=== PATIENT | female | born 1955 | race Two or more races ===

== ENCOUNTER → 2018-12-09 | Outpatient (RCR) | payer MEDICARE, OTHER ==
[~2018-12-09] MED LIST: LYRICA75 MG PO
== END ==
LOC: PT 10:54
PROVIDERS: ATTEND Orthopaedic Surgery
DX: M17.12 Unilateral primary osteoarthritis, left knee (principal); M25.562 Pain in left knee; M25.462 Effusion, left knee; M25.662 Stiffness of left knee, not elsewhere classified; M62.81 Muscle weakness (generalized)

== ENCOUNTER → 2019-01-02 | Day surgery (SDC) | payer MEDICARE, OTHER ==
[2018-12-29 14:45] LABS: BASOPHILS % 0.2 % (0.0-1.0); HEMATOCRIT 39.8 % (34.2-44.1); HEMOGLOBIN 12.2 g/dL (12.0-16.0); LYMPHOCYTES # (AUTO) 1.6 (1.0-3.2); LYMPHOCYTES % 38.4 % (18.0-39.1); MEAN CORPUSCULAR HEMOGLOBIN 25.2 pg (28-32); MEAN CORPUSCULAR HGB CONC 30.7 g/dL (31-35); MEAN CORPUSCULAR VOLUME 82.1 fL (81-99); MONOCYTES # (AUTO) 0.4 (0.2-0.8); MONOCYTES % 8.5 % (4.4-11.3); NEUTROPHILS # (AUTO) 2.2 (2.1-6.9); NEUTROPHILS % 52.7 % (38.7-80.0); PLATELET COUNT 221 x10e3/uL (140-360); RED BLOOD COUNT 4.85 x10e6/uL (3.6-5.1); RED CELL DISTRIBUTION WIDTH 14.3 % (11.7-14.4)
[~2019-01-02] MED LIST changes: +FENTANYL CITRATE/PF 100MCG/2 ML INJ ONE; +GLUCAGON FOR INJ 1 MG VIAL ONE; +HYOSCYAMINE 0.125 MG TAB ONE; +LIDOCAINE HCL 2% LOCAL INJ 5 ML SDV VIAL INJ ONE; +MIDAZOLAM HCL 2 MG/2 ML VIAL ONE; +PROPOFOL IV EMULSION 10 MG/ML 50 ML VIAL ONE
--- OUTSIDE RECORDS SUMMARY | 2019-01-02 11:51 | XMS REPORT ---
[facility] Address Unknown Phone Unavailable Care Team Providers Care Brick Setter Name Role Phone Unavailable Unavailable Payers Payer Name Policy Type Policy Number Effective Date Expiration Date Problems This patient has no known problems. Allergies, Adverse Reactions, Alerts Allergy Name Allergy Type Status Severity Reaction(s) Onset Date Inactive Date Treating Clinician Comments No Known Allergies DA Active U 2015-01-02 00:00:00 Medications This patient has no known medications. Encounters Start Date/Time End Date/Time Encounter Type Admission Type Attending Clinicians Care Facility Care Department Encounter ID 2018-11-17 10:39:00 2018-11-17 10:39:00 Outpatient [facility] [id number] Results Test Description Test Time Test Comments Text Results Atomic Results Result Comments - MRI LW JNT W/O CONT LT 2018-10-26 08:18:00 FAX: Sal Sidhu [phone] [place]: B St: DEP Name: LIZET MILLER [facility] : 1955 Age/S: 63/F [address] [facility] Unit #: [id number] Loc: V.MRI DORINDA [place] [address] Phys: Undefined Provider Acct: [id number] Dis Date: Status: DEP CLI PHONE #: [phone] Exam Date: 10/25/2018 1449 FAX #: [phone] Reason: S83.231 EXAMS: CPT CODE: [id number] MRI LW JNT W/[place] [address] HISTORY: S8. COMPARISON: None available. MRI left kidney without contrast: The quadriceps tendon is intact. Grade 2 strain at the origin of the patellar tendon. Infrapatellar Hoffa's fat, prefemoral fat and quadriceps fat are without impingement. Mild edema of the infrapatellar Hoffa's fat. No bone bruise or acute fracture or osteochondral lesions. Marginal enthesophytes from the patella and the femoral condyles suggesting osteoarthritis. Mild narrowing of the knee joint in all 3 compartments. Posterior bowing of the ACL suggesting injury without tear. PCL is intact as well. Lateral meniscus is without tear or truncation. Medial meniscus demonstrating extensive mucoid degeneration but no tear is noted. No truncation. Meniscal roots are intact. No meniscocapsular separation. LCL and MCL complex are intact. Musculature is without tear or edema with normal signal. Popliteus tendon is intact without tear. Large suprapatellar joint fluid. Popliteal cyst measuring 6 mm along the medial head of the gastrocnemius muscle. The medial and the lateral retinaculum are intact. MPFL demonstrating partial tear at the patellar insertion. Thinning of the articular cartilage of the patella without tear. IMPRESSION: Grade 2 strain of the origin of the patellar tendon. Quadriceps tendon is intact. Partial tear of the MPFL at its patellar insertion. Moderate suprapatellar joint fluid. Popliteal cyst measuring 6 cm. Posterior bowing of the ACL suggesting injury but no tear. PCL is intact. Lateral meniscus is intact. Medial meniscus is intact with mucoid degeneration without truncation or tear. Osteoarthritis with marginal osteophytes and narrowing of the knee joint in all 3 compartments. PAGE 1 Signed Report (CONTINUED) FAX: Sal Sidhu [phone] [place]: St: DEP Name: LIZET MILLER [facility] : 1955 Age/S: 63/F [address] Unit #: [id number] Loc: [place] [address] Phys: Undefined Provider Acct: [id number] Dis Date: Status: DEP CLI PHONE #: [phone] Exam Date: 10/25/2018 1449 FAX #: [phone] Reason: S83.231 EXAMS: CPT CODE: [id number] MRI LW JNT W/[place] [address] <Continued> at 0818 Reported and signed by: Noel Goncalves M.D. CC: Sal Arzola Technologist: RT ABDIAZIZ - MRI [facility] Date/Time/By: 10/26/2018 (817) : By: [email or web address] Orig Print D/T: S: 10/26/2018 (820) PAGE 2 Signed Report - MRI UPPER EX W/O CONT RT 2018-10-15 19:41:00 FAX: Sal Sidhu [phone] [place]: B St: DEP Name: LIZET MILLER [facility] : 1955 Age/S: 62/F [address] Unit #: [id number] Loc: [place] [address] Phys: Sal Arzola DO Acct: [id number] Dis Date: Status: DEP CLI PHONE #: [phone] Exam Date: 10/14/2018 1653 FAX #: [phone] Reason: FINGER PAIN EXAMS: CPT CODE: [id number] [place] UPPER EX W/[place] [address] HISTORY: Finger pain. COMPARISON: None available. MRI of the 2nd right digit/phalanx without contrast: No acute fracture is noted. No bone bruise is noted. Joint spaces are preserved. Tear noted of the annular A4 karthik at the mid portion of the middle phalangeal level. Moderate amount of fluid and edema phalanx from the flexor tendon. Tear of both the radial and the ulnar side of the karthik is noted. Annular A 2 karthik is intact. Rest of the pulleys are intact along with the cruciate pulleys. The flexor tendon is intact. Small ganglion cyst along the dorsal margin of the distal 1st phalanx. This measures 5 mm. IMPRESSION: Tear of the A4 karthik of the 2nd middle phalanx both along its radial and ulnar margin with fluid interposed between the flexor tendon and the middle phalanx. No acute fracture or bone bruise. at 194 Reported and signed by: Noel Goncalves M.D. CC: Sal Arzola Technologist: Parvez Taylor)() Trnscrd Date/Time/By: 10/15/2018 (1940) : By: [email or web address] Orig Print D/T: S: 10/15/2018 (1943) PAGE 1 Signed Report
[2019-01-02 15:35] VITALS: BP 139/82
--- NOTE | 2019-01-02 18:08 | Operative Report ---
DATE OF PROCEDURE: 01/02/2019 SURGEON: Zoltan Sheikh MD PROCEDURE: Esophagogastroduodenoscopy with biopsies and esophageal dilatation and colonoscopy with polypectomy. INDICATION FOR EGD: Dysphagia, burning upper abdominal pain. INDICATIONS FOR COLONOSCOPY: Surveillance colonoscopy, personal history of colon polyps. MEDICATION: The patient was done under MAC, please see anesthesiologist's note PROCEDURE IN DETAIL: With the patient in left lateral decubitus position, a flexible fiberoptic Olympus gastroscope was introduced into the esophagus under direct visualization without any difficulty. There was some patchy erythema noted in distal esophagus. A mild stricture was noted at the GE junction that was dilated to size 52-[place]. The scope was then advanced with ease into the stomach traversing a small sliding hiatal hernia. Mucosa overlying the antrum and the body revealed some patchy erythema and low-grade to moderate edema and biopsies were obtained and sent to stain for H pylori. The pylorus was of normal contour and shape, it was intubated with ease and the scope was advanced all the way to the second portion of the duodenum. Biopsies were obtained from the second portion and the duodenal bulb to rule out sprue. The scope was then withdrawn back into the stomach and retroflexed and the fundus appeared to be within normal limits. A minute submucosal nodule was noted just below the cardia and that was biopsied. The scope was then straightened out, it was subsequently withdrawn. The patient tolerated procedure well. IMPRESSION: 1. Distal esophagitis, mild. 2. Esophagus dilated to size 52-[place]. 3. Small hiatal hernia. 4. Gastritis, biopsied, biopsies sent to stain for H pylori. 5. Minute submucosal nodule just below cardia, biopsied. 6. Rule out sprue. PLAN: Follow up histology. Initiate Protonix 40 mg one p.o. q.a.m. a.c. PROCEDURE IN DETAIL: The patient was then turned around. After adequate lubrication of the anal canal, a flexible fiberoptic Olympus colonoscope was inserted into the rectum with ease and advanced all the way to the cecum. Mucosa overlying the cecum appeared to be within normal limits. A single diverticulum was noted in the ascending colon. Two polyps were hot biopsied from the ascending colon. The transverse appeared to be within normal limits. One polyp was hot biopsied from the descending colon. Some diverticular disease was noted in the sigmoid colon. The rectum appeared to be within normal limits. The scope was then retroflexed into the distal rectum and small internal hemorrhoids were noted, none of which was actively bleeding. The scope was then straightened out, it was subsequently withdrawn. The patient tolerated procedure well. IMPRESSION: 1. Ascending colon polyp x2, hot biopsied. 2. Diverticulosis. 3. Descending colon polyp, hot biopsied. 4. Internal hemorrhoids, none actively bleeding. PLAN: Follow up histology. Initiate high-fiber, low-fat diet. Initiate high-fiber supplement. The patient might benefit from a followup colonoscopy in 5 years. Zoltan Sheikh MD [facility] [place] /[id number] cc: Sal Arzola DO
== END | disposition home or self-care (01) ==
LOC: OR 11:45
PROVIDERS: ATTEND Internal Medicine Gastroenterology
DX: K29.60 Other gastritis without bleeding (principal); D12.2 Benign neoplasm of ascending colon; D12.4 Benign neoplasm of descending colon; K22.2 Esophageal obstruction; K29.80 Duodenitis without bleeding; K21.9 Gastro-esophageal reflux disease without esophagitis; K28.9 Gastrojejunal ulcer, unspecified as acute or chronic, without hemorrhage or perforation; K20.9 Esophagitis, unspecified; K44.9 Diaphragmatic hernia without obstruction or gangrene; K31.89 Other diseases of stomach and duodenum; K57.30 Diverticulosis of large intestine without perforation or abscess without bleeding; K64.8 Other hemorrhoids; R03.0 Elevated blood-pressure reading, without diagnosis of hypertension; Z01.810 Encounter for preprocedural cardiovascular examination; Z01.812 Encounter for preprocedural laboratory examination
CPT/HCPCS: 36415; 43239; 43450; 45384; 85025; 88305; 88312; 93005; J1610; J2001; J2250; J2704; 45378; J3010

== ENCOUNTER 2019-01-06 13:00 | Outpatient (RCR) | payer MEDICARE, OTHER ==
[~2019-01-06 13:00] MED LIST changes: -FENTANYL CITRATE/PF 100MCG/2 ML INJ ONE; -GLUCAGON FOR INJ 1 MG VIAL ONE; -HYOSCYAMINE 0.125 MG TAB ONE; -LIDOCAINE HCL 2% LOCAL INJ 5 ML SDV VIAL INJ ONE; -MIDAZOLAM HCL 2 MG/2 ML VIAL ONE; -PROPOFOL IV EMULSION 10 MG/ML 50 ML VIAL ONE
== END 2019-01-08 ==
LOC: PT 13:00
PROVIDERS: ATTEND Orthopaedic Surgery
DX: M17.12 Unilateral primary osteoarthritis, left knee (principal); M25.562 Pain in left knee; M62.81 Muscle weakness (generalized); M25.662 Stiffness of left knee, not elsewhere classified; M25.462 Effusion, left knee

== ENCOUNTER 2019-01-23 10:00 | Outpatient (RCR) | payer MEDICARE, OTHER | END 2019-02-08 | LOC: OT 10:00 | PROVIDERS: ATTEND Orthopaedic Surgery | DX: M19.041 Primary osteoarthritis, right hand (principal); M79.644 Pain in right finger(s); M25.541 Pain in joints of right hand; M25.441 Effusion, right hand ==

== ENCOUNTER → 2020-02-09 | Outpatient (RCR) | payer MEDICARE, OTHER | LOC: PT 01-29 15:37 | PROVIDERS: ATTEND Orthopaedic Surgery | DX: M17.12 Unilateral primary osteoarthritis, left knee (principal); Z96.652 Presence of left artificial knee joint; Z47.1 Aftercare following joint replacement surgery; M62.81 Muscle weakness (generalized); R26.2 Difficulty in walking, not elsewhere classified; R26.9 Unspecified abnormalities of gait and mobility ==

== ENCOUNTER → 2020-03-11 | Outpatient (RCR) | payer MEDICARE, OTHER | LOC: PT 02-12 14:59 → OT 02-20 13:52 → PT 02-20 14:20 → OT 02-28 14:54 → PT 03-01 15:00 → OT 03-08 13:52 → PT 14:56 | PROVIDERS: ATTEND Orthopaedic Surgery | DX: M17.12 Unilateral primary osteoarthritis, left knee (principal); Z96.652 Presence of left artificial knee joint; M65.321 Trigger finger, right index finger | CPT/HCPCS: 97139 ==

== ENCOUNTER 2020-04-09 14:59 | Outpatient (RCR) | payer MEDICARE, OTHER | END 2020-04-10 | LOC: PT 14:59 | PROVIDERS: ATTEND Orthopaedic Surgery | DX: Z96.652 Presence of left artificial knee joint (principal); Z47.1 Aftercare following joint replacement surgery; M17.12 Unilateral primary osteoarthritis, left knee; R26.9 Unspecified abnormalities of gait and mobility; M62.81 Muscle weakness (generalized); R26.2 Difficulty in walking, not elsewhere classified | CPT/HCPCS: 97139 ==

== ENCOUNTER → 2020-06-10 | Outpatient (RCR) | payer MEDICARE, OTHER | LOC: PT 05-31 10:45 | PROVIDERS: ATTEND Orthopaedic Surgery | DX: M17.12 Unilateral primary osteoarthritis, left knee (principal); M54.5 Low back pain; M62.81 Muscle weakness (generalized); M25.562 Pain in left knee; M25.662 Stiffness of left knee, not elsewhere classified; R26.2 Difficulty in walking, not elsewhere classified ==

== ENCOUNTER 2020-06-24 14:55 | Outpatient (RCR) | payer MEDICARE, OTHER | END 2020-07-11 | LOC: PT 14:55 | PROVIDERS: ATTEND Orthopaedic Surgery | DX: Z96.652 Presence of left artificial knee joint (principal); M17.12 Unilateral primary osteoarthritis, left knee; M25.562 Pain in left knee; M25.662 Stiffness of left knee, not elsewhere classified; M54.5 Low back pain; M62.81 Muscle weakness (generalized); R26.2 Difficulty in walking, not elsewhere classified | CPT/HCPCS: 97139 ==

== ENCOUNTER → 2020-06-27 | Outpatient (CLI) | payer MEDICARE, OTHER ==
[~2020-06-27] MED LIST changes: +GADOBENATE DIMEGLUMINE 1 ML IV ONE
[2020-06-27 14:48] LABS: BLOOD UREA NITROGEN 13 mg/dL (7-26); BUN/CREATININE RATIO 18 (6-25); CREATININE, SERUM 0.72 mg/dL (0.57-1.11); EST GLOMERULAR FILTRATION RATE > 60 ML/MIN (60-)
== END ==
LOC: MRI 13:59
PROVIDERS: ATTEND Family Medicine
DX: Z12.31 Encounter for screening mammogram for malignant neoplasm of breast (principal); N63.32 Unspecified lump in axillary tail of the left breast; R91.1 Solitary pulmonary nodule; R10.9 Unspecified abdominal pain
CPT/HCPCS: 36415; 77067; 82565; 84520

== ENCOUNTER → 2020-07-02 | Outpatient (CLI) | payer MEDICARE, OTHER ==
[~2020-07-02] MED LIST changes: -GADOBENATE DIMEGLUMINE 1 ML IV ONE; +IOPAMIDOL 370 MG/ML 200 ML INFUS..BTL INJ ONE; +SODIUM CHLORIDE 0.9% 50ML 50 ML ONE
== END ==
LOC: CT 09:56
PROVIDERS: ATTEND Family Medicine
DX: N63.32 Unspecified lump in axillary tail of the left breast (principal); R10.9 Unspecified abdominal pain; R91.1 Solitary pulmonary nodule
CPT/HCPCS: 71260; 74177; Q9967

== ENCOUNTER → 2020-07-22 | Outpatient (CLI) | payer MEDICARE, OTHER ==
[~2020-07-22] MED LIST changes: -IOPAMIDOL 370 MG/ML 200 ML INFUS..BTL INJ ONE; -SODIUM CHLORIDE 0.9% 50ML 50 ML ONE
== END ==
LOC: DX 09:21
PROVIDERS: ATTEND Family Medicine
DX: M81.0 Age-related osteoporosis without current pathological fracture (principal)
CPT/HCPCS: 77080

== ENCOUNTER 2020-08-09 12:57 | Outpatient (RCR) | payer MEDICARE, OTHER | END 2020-08-11 | LOC: PT 12:57 | PROVIDERS: ATTEND Orthopaedic Surgery | DX: M17.12 Unilateral primary osteoarthritis, left knee (principal) | CPT/HCPCS: 97139 ==

== ENCOUNTER 2020-09-02 14:55 | Outpatient (RCR) | payer MEDICARE, OTHER | END 2020-09-08 | LOC: PT 14:55 | PROVIDERS: ATTEND Orthopaedic Surgery | DX: M17.12 Unilateral primary osteoarthritis, left knee (principal); M54.5 Low back pain ==

== ENCOUNTER → 2020-11-25 | Outpatient (CLI) | payer MEDICARE, OTHER ==
[~2020-11-25] MED LIST changes: +IOPAMIDOL 370 MG/ML 200 ML INFUS..BTL INJ ONE; +SODIUM CHLORIDE 0.9% 50ML 50 ML ONE
[2020-11-25 18:02] LABS: BLOOD UREA NITROGEN 24 mg/dL (7-26); BUN/CREATININE RATIO 31 (6-25); CREATININE, SERUM 0.78 mg/dL (0.57-1.11); EST GLOMERULAR FILTRATION RATE > 60 ML/MIN (60-)
== END ==
LOC: CT 17:22
PROVIDERS: ATTEND Internal Medicine Gastroenterology
DX: R10.10 Upper abdominal pain, unspecified (principal)
CPT/HCPCS: 36415; 74160; 82565; 84520; Q9967

== ENCOUNTER 2020-12-05 09:59 | Outpatient (RCR) | payer MEDICARE, OTHER ==
[~2020-12-05 09:59] MED LIST changes: +ALENDRONATE SOD10 MG PO; +CELEXA10 MG PO; +GABAPENTIN100 MG PO; -IOPAMIDOL 370 MG/ML 200 ML INFUS..BTL INJ ONE; +PANTOPRAZOLE SO40 MG PO; -SODIUM CHLORIDE 0.9% 50ML 50 ML ONE
== END 2020-12-09 ==
LOC: PT 09:59
PROVIDERS: ATTEND Orthopaedic Surgery

== ENCOUNTER → 2020-12-12 | Day surgery (SDC) | payer MEDICARE, OTHER ==
[2020-12-10 10:44] LABS: BASOPHILS % 0.3 % (0.0-1.0); HEMATOCRIT 37.7 % (34.2-44.1); HEMOGLOBIN 11.3 g/dL (12.0-16.0); LYMPHOCYTES # (AUTO) 1.8 (1.0-3.2); LYMPHOCYTES % 45.3 % (18.0-39.1); MEAN CORPUSCULAR HEMOGLOBIN 24.4 pg (28-32); MEAN CORPUSCULAR VOLUME 81.4 fL (81-99); MONOCYTES # (AUTO) 0.3 (0.2-0.8); MONOCYTES % 7.3 % (4.4-11.3); NEUTROPHILS # (AUTO) 1.8 (2.1-6.9); NEUTROPHILS % 46.8 % (38.7-80.0); PLATELET COUNT 214 x10e3/uL (140-360); RED BLOOD COUNT 4.63 x10e6/uL (3.6-5.1); RED CELL DISTRIBUTION WIDTH 14.1 % (11.7-14.4)
[~2020-12-12] MED LIST changes: +GLUCAGON FOR INJ 1 MG VIAL ONE; +HYOSCYAMINE SULFATE 0.5 MG/ML INJ ONE; +LIDOCAINE HCL 2% LOCAL INJ 5 ML SDV VIAL INJ ONE; +METOCLOPRAMIDE HCL 10 MG/2ML VIAL ONE; +PANTOPRAZOLE 40 MG 10ML VIAL IV NR; +POVIDONE IODINE 0.05% 0.05 % ML PO ONE; +PROPOFOL IV EMULSION 10 MG/ML 20 ML VIAL ONE
[2020-12-12 12:40] VITALS: BP 137/89
== END | disposition home or self-care (01) ==
LOC: OR 07:53
PROVIDERS: ATTEND Internal Medicine Gastroenterology
DX: K21.00 Gastro-esophageal reflux disease with esophagitis, without bleeding (principal); K62.1 Rectal polyp; K31.7 Polyp of stomach and duodenum; K29.70 Gastritis, unspecified, without bleeding; K44.9 Diaphragmatic hernia without obstruction or gangrene; K64.8 Other hemorrhoids; E78.00 Pure hypercholesterolemia, unspecified; R03.0 Elevated blood-pressure reading, without diagnosis of hypertension; Z01.810 Encounter for preprocedural cardiovascular examination; Z01.812 Encounter for preprocedural laboratory examination; Z20.822 Contact with and (suspected) exposure to COVID-19; Z80.0 Family history of malignant neoplasm of digestive organs
CPT/HCPCS: 36415; 43239; 45384; 85025; 88305; 88312; 93005; C9113; J1610; J1980; J2001; J2704; J2765; U0002; 45378

== ENCOUNTER 2021-01-03 12:55 | Outpatient (RCR) | payer MEDICARE, OTHER ==
[~2021-01-03 12:55] MED LIST changes: -GLUCAGON FOR INJ 1 MG VIAL ONE; -HYOSCYAMINE SULFATE 0.5 MG/ML INJ ONE; -LIDOCAINE HCL 2% LOCAL INJ 5 ML SDV VIAL INJ ONE; -METOCLOPRAMIDE HCL 10 MG/2ML VIAL ONE; -PANTOPRAZOLE 40 MG 10ML VIAL IV NR; -POVIDONE IODINE 0.05% 0.05 % ML PO ONE; -PROPOFOL IV EMULSION 10 MG/ML 20 ML VIAL ONE
== END 2021-01-08 ==
LOC: PT 12:55
PROVIDERS: ATTEND Orthopaedic Surgery
DX: M17.12 Unilateral primary osteoarthritis, left knee (principal); M54.5 Low back pain
CPT/HCPCS: 97139

== ENCOUNTER → 2021-01-24 | Outpatient (CLI) | payer MEDICARE, OTHER | LOC: DX 09:38 | PROVIDERS: ATTEND Internal Medicine Gastroenterology | DX: R10.10 Upper abdominal pain, unspecified (principal) | CPT/HCPCS: 74250 ==

== ENCOUNTER 2021-08-24 11:24 | Observation (INO) | payer MEDICARE, OTHER ==
[~2021-08-24] VITALS: Ht 165.1 cm; Wt 79.4 kg
[2021-08-24] MEDS ORDERED: ONDANSETRON HCL INJ 2MG/ML 2ML 2 MG/ML VIAL IV STA (11:52)
[2021-08-24 11:54] LABS: RED BLOOD COUNT 5.37 x10e6/uL (3.6-5.1)
[2021-08-24 11:55] LABS: BASOPHILS % 0.4 % (0.0-1.0); HEMATOCRIT 42.3 % (34.2-44.1); HEMOGLOBIN 13.1 g/dL (12.0-16.0); LYMPHOCYTES # (AUTO) 3.2 (1.0-3.2); LYMPHOCYTES % 56.8 % (18.0-39.1); MEAN CORPUSCULAR HEMOGLOBIN 24.4 pg (28-32); MEAN CORPUSCULAR VOLUME 78.8 fL (81-99); MONOCYTES # (AUTO) 0.4 (0.2-0.8); MONOCYTES % 6.8 % (4.4-11.3); NEUTROPHILS % 35.8 % (38.7-80.0); PLATELET COUNT 270 x10e3/uL (140-360); RED CELL DISTRIBUTION WIDTH 14.8 % (11.7-14.4)
[2021-08-24 12:08] LABS: INR 0.91; PROTHROMBIN TIME 12.9 seconds (11.9-14.5)
[2021-08-24 12:09] LABS: PARTIAL THROMBOPLASTIN TIME 28.5 seconds (23.8-35.5)
[2021-08-24] MEDS ORDERED: Morphine 2mg Syringe 2 MG/ML SYR IV PRN (12:15)
[2021-08-24] MEDS ORDERED: ONDANSETRON HCL INJ 2MG/ML 2ML 2 MG/ML VIAL IV PRN ×2 (12:15→13:45)
[2021-08-24 12:16] LABS: ALBUMIN 4.2 g/dL (3.5-5.0); ALBUMIN/GLOBULIN RATIO 1.1 (0.8-2.0); ANION GAP 19.6 mmol/L (8-16); CALCIUM 10.1 mg/dL (8.4-10.2); CREATININE, SERUM 0.82 mg/dL (0.57-1.11); POTASSIUM 3.6 mmol/L (3.5-5.1)
[2021-08-24 12:23] LABS: CREATINE KINASE MB 1.1 ng/mL (0-5.0)
[2021-08-24] MEDS ORDERED: Morphine 2mg Syringe 2 MG/ML SYR IV ONE (12:30)
[2021-08-24] MEDS ORDERED: ASPIRIN 81 MG CHEW TAB PO ONE (12:30)
[2021-08-24 12:53] VITALS: BP 141/75
[2021-08-24 13:36] VITALS: BP 141/75
[2021-08-24] MEDS ORDERED: SIMETHICONE 80 MG CHEW PO PRN (13:45)
[2021-08-24] MEDS ORDERED: CHLORASEPTIC SPRAY 177 ML BTL MM PRN (13:45)
[2021-08-24] MEDS ORDERED: ALBUTEROL/IPRATROPIUM 3 ML NEB NEB PRN (13:45)
[2021-08-24] MEDS ORDERED: HYDRALAZINE HCL 20 MG/ML VIAL IV PRN (13:45)
[2021-08-24] MEDS ORDERED: DOCUSATE SODIUM 100 MG CAP PO PRN (13:45)
[2021-08-24] MEDS ORDERED: DEXTROSE 50% SYRINGE 50 ML IV PRN (13:45)
[2021-08-24] MEDS ORDERED: DIPHENHYDRAMINE HCL 25 MG CAP PO PRN (13:45)
[2021-08-24] MEDS ORDERED: POTASSIUM CHLORIDE 20 MEQ TAB CR PO PRN (13:45)
[2021-08-24] MEDS ORDERED: ACETAMINOPHEN 325 MG TAB PO PRN (13:45)
[2021-08-24] MEDS ORDERED: LIDOCAINE 4% PATCH TP PRN (13:45)
[2021-08-24] MEDS ORDERED: BENZONATATE 100 MG CAP PO PRN (13:45)
[2021-08-24] MEDS ORDERED: CRESTOR10 MG PO (13:59)
[2021-08-24] MEDS ORDERED: FAMOTIDINE20 MG PO (13:59)
[2021-08-24] MEDS ORDERED: KETOROLAC TROMETHAMINE 30 MG/ML VIAL IV PRN (14:00)
[2021-08-24] MEDS ORDERED: TRAMADOL HCL 50 MG TAB PO PRN (14:00)
[2021-08-24] MEDS: SODIUM CHLORIDE 0.9% 1000ML 1,000 ML IV SCH (14:19)
[2021-08-24] MEDS ORDERED: IOPAMIDOL 370 MG/ML 200 ML INFUS..BTL INJ ONE (14:28)
[2021-08-24] MEDS ORDERED: SODIUM CHLORIDE 0.9% 50ML 50 ML ONE (14:28)
[2021-08-24 16:32] VITALS: BP 103/47
[2021-08-24] MEDS: GABAPENTIN 300 MG CAP PO SCH (17:09)
[2021-08-24] MEDS: ENOXAPARIN SOD INJ 40 MG/0.4 ML SYR SC SCH (17:09)
[2021-08-24 20:13] VITALS: BP 123/65
[2021-08-24 20:57] VITALS: BP 93/55
[2021-08-24] MEDS ORDERED: ATORVASTATIN 20 MG TAB PO SCH (21:00)
[2021-08-24 21:04] VITALS: BP 123/65
[2021-08-25] VITALS (7 sets, daily range): BP systolic 93–128; BP diastolic 57–76
[2021-08-25] MEDS: SODIUM CHLORIDE 0.9% 1000ML 1,000 ML IV SCH ×2 (00:39→11:30)
[2021-08-25 05:18] LABS: BASOPHILS % 0.3 % (0.0-1.0); HEMATOCRIT 39.8 % (34.2-44.1); HEMOGLOBIN 11.6 g/dL (12.0-16.0); LYMPHOCYTES # (AUTO) 1.3 (1.0-3.2); LYMPHOCYTES % 42.2 % (18.0-39.1); MEAN CORPUSCULAR HEMOGLOBIN 24.6 pg (28-32); MEAN CORPUSCULAR HGB CONC 29.1 g/dL (31-35); MEAN CORPUSCULAR VOLUME 84.3 fL (81-99); MONOCYTES # (AUTO) 0.3 (0.2-0.8); MONOCYTES % 8.8 % (4.4-11.3); NEUTROPHILS # (AUTO) 1.5 (2.1-6.9); NEUTROPHILS % 48.4 % (38.7-80.0); PLATELET COUNT 214 x10e3/uL (140-360); RED BLOOD COUNT 4.72 x10e6/uL (3.6-5.1)
[2021-08-25 06:03] LABS: ALBUMIN 3.2 g/dL (3.5-5.0); ALBUMIN/GLOBULIN RATIO 1.1 (0.8-2.0); ANION GAP 10.8 mmol/L (8-16); CALCIUM 8.8 mg/dL (8.4-10.2); CHOL/HDL RATIO 4.6 (3.0-3.6); CREATININE, SERUM 0.78 mg/dL (0.57-1.11); PHOSPHORUS 3.1 MG/DL (2.3-4.7); POTASSIUM 3.8 mmol/L (3.5-5.1)
[2021-08-25 06:34] LABS: CREATINE KINASE MB 0.8 ng/mL (0-5.0)
[2021-08-25] MEDS ORDERED: PANTOPRAZOLE SOD 40 MG TABEC PO SCH (07:30)
[2021-08-25] MEDS: GABAPENTIN 300 MG CAP PO SCH ×2 (08:52→16:26)
[2021-08-25] MEDS ORDERED: REGADENOSON 0.4 MG/5 ML SYR IV ONE (10:07)
[2021-08-25] MEDS ORDERED: AMINOPHYLLINE INJ 25 MG/ML 20 ML VIAL ONE (10:24)
[2021-08-25] MEDS: CITALOPRAM HYDROBROMIDE 20 MG TAB PO SCH ×2 (11:30→14:55)
[2021-08-25] MEDS: ASPIRIN 81 MG ENTERIC COATED PO SCH ×2 (11:30→14:55)
[2021-08-25] MEDS ORDERED: SODIUM CHLORIDE 0.9% 1000ML 1,000 ML IV SCH (11:45)
[2021-08-25] MEDS ORDERED: HYDROXYZINE HCL 25 MG TAB PO PRN (12:15)
[2021-08-25] MEDS ORDERED: FENTANYL CITRATE/PF 100MCG/2 ML INJ ONE (13:13)
[2021-08-25] MEDS ORDERED: LIDOCAINE HCL 2% LOCAL 20 ML VIAL ONE (13:13)
[2021-08-25] MEDS ORDERED: MIDAZOLAM HCL 2 MG/2 ML VIAL ONE (13:13)
[2021-08-25] MEDS ORDERED: IOPAMIDOL 370 MG/ML 200 ML INFUS..BTL INJ ONE (13:14)
[2021-08-25] MEDS ORDERED: HEPARIN SOD/SOD CHLORIDE 2,000 ML ONE (13:14)
[2021-08-25] MEDS ORDERED: SODIUM CHLORIDE 0.9% 1000ML 1,000 ML ONE (13:14)
[2021-08-25 13:27] LABS: CREATINE KINASE MB 0.7 ng/mL (0-5.0)
[2021-08-25] MEDS ORDERED: AMLODIPINE BESYL5 MG PO (14:21)
[2021-08-25] MEDS: ENOXAPARIN SOD INJ 40 MG/0.4 ML SYR SC SCH (16:26)
[2021-08-25] MEDS ORDERED: atarax PO (18:27)
== END 2021-08-25 18:46 | disposition home or self-care (01) ==
LOC: ER 11:42 → ERHOLD 12:09 → MED/SURG 12:52
PROVIDERS: ADMIT Internal Medicine; ATTEND Internal Medicine
DX: I20.1 Angina pectoris with documented spasm (principal); I10 Essential (primary) hypertension; E78.5 Hyperlipidemia, unspecified; G25.81 Restless legs syndrome; K21.9 Gastro-esophageal reflux disease without esophagitis; F32.A Depression, unspecified; F41.9 Anxiety disorder, unspecified; Z20.822 Contact with and (suspected) exposure to COVID-19; Z90.49 Acquired absence of other specified parts of digestive tract; M19.90 Unspecified osteoarthritis, unspecified site; Z80.8 Family history of malignant neoplasm of other organs or systems; Z87.898 Personal history of other specified conditions
CPT/HCPCS: 36415 ×2; 71045; 71260; 78452; 80053 ×2; 80061; 82550 ×2; 82553 ×2; 83036; 83735; 83880; 84100; 84443; 84484 ×2; 85025 ×2; 85610; 85730; 93005; 93017; 93306; 93458; 94799 ×2; 99284; A9502; C1760; C1766; C1769; C1887; G0378 ×2; J0280; J1650 ×2; J1885; J2001; J2250; J2270; J2405; J2785; J3010; J7030 ×2; Q9967 ×2; U0002; 99152

== ENCOUNTER → 2022-06-08 | Outpatient (CLI) | payer MEDICARE, OTHER ==
[~2022-06-08] MED LIST changes: +AMLODIPINE BESYL5 MG PO; +CRESTOR10 MG PO; +FAMOTIDINE20 MG PO; +atarax PO
== END ==
LOC: MRI 12:53
PROVIDERS: ATTEND Orthopaedic Surgery
DX: M54.16 Radiculopathy, lumbar region (principal)
CPT/HCPCS: 72148

== ENCOUNTER → 2023-07-28 | Outpatient (REF) | payer MEDICARE, OTHER | LOC: DX 10:12 | PROVIDERS: ATTEND Orthopaedic Surgery | DX: M85.88 Other specified disorders of bone density and structure, other site (principal) | CPT/HCPCS: 77080 ==

== ENCOUNTER → 2024-04-10 | Outpatient (REF) | payer MEDICARE, OTHER ==
[~2024-04-10] MED LIST changes: +DIATRIZOATE MEGL/DIATRIZOA SOD 30 ML BTL PO ONE; +IOPAMIDOL 370 MG/ML 100 ML INFUS..BTL INJ ONE
== END ==
LOC: CT 16:00
PROVIDERS: ATTEND Internal Medicine Gastroenterology
DX: R10.84 Generalized abdominal pain (principal)
CPT/HCPCS: 74177

== ENCOUNTER → 2024-04-25 | Outpatient (REF) | payer MEDICARE, OTHER ==
[~2024-04-25] MED LIST changes: -DIATRIZOATE MEGL/DIATRIZOA SOD 30 ML BTL PO ONE; -IOPAMIDOL 370 MG/ML 100 ML INFUS..BTL INJ ONE
== END ==
LOC: MRI 09:38
PROVIDERS: ATTEND Orthopaedic Surgery
DX: M54.50 Low back pain, unspecified (principal)
CPT/HCPCS: 72148

== ENCOUNTER 2024-08-30 23:38 | Emergency (ER) | payer MEDICARE, OTHER ==
[~2024-08-30] VITALS: Ht 165.1 cm; Wt 69.9 kg
[2024-08-30 23:45] VITALS: TEMP 98.2
[2024-08-31] MEDS: SODIUM CHLORIDE 0.9% 1000ML 1,000 ML IV STA (00:01)
[2024-08-31 00:03] VITALS: PULSE 74; RESP 17
[2024-08-31 00:06] LABS: BASOPHILS % 0.4 % (0.0-1.0); EOSINOPHILS % 0.4 % (0.0-6.0); HEMATOCRIT 42.6 % (34.2-44.1); HEMOGLOBIN 13.2 g/dL (12.0-16.0); LYMPHOCYTES # (AUTO) 2.9 (1.0-3.2); LYMPHOCYTES % 52.1 % (18.0-39.1); MEAN CORPUSCULAR HEMOGLOBIN 25.4 pg (28-32); MEAN CORPUSCULAR VOLUME 82.1 fL (81-99); MONOCYTES # (AUTO) 0.5 (0.2-0.8); NEUTROPHILS # (AUTO) 2.1 (2.1-6.9); NEUTROPHILS % 37.9 % (38.7-80.0); PLATELET COUNT 260 x10e3/uL (140-360); RED BLOOD COUNT 5.19 x10e6/uL (3.6-5.1); RED CELL DISTRIBUTION WIDTH 13.7 % (11.7-14.4); WHITE BLOOD COUNT 5.47 x10e3/uL (4.8-10.8)
[2024-08-31] MEDS: METOCLOPRAMIDE HCL 10 MG/2ML VIAL IV STA (00:29)
[2024-08-31] MEDS: KETOROLAC TROMETHAMINE 30 MG/ML VIAL IV STA (00:29)
[2024-08-31] MEDS: DIPHENHYDRAMINE HCL INJ 50 MG/ML VIAL IV STA (00:29)
[2024-08-31] MEDS: METHYLPREDNISOLONE SOD SUCC 125 MG/2ML VIAL IV STA (00:29)
[2024-08-31 00:30] LABS: ALANINE AMINOTRANSFERASE 30 IU/L (0-55); ALBUMIN 4.3 g/dL (3.5-5.0); ALBUMIN/GLOBULIN RATIO 1.2 (0.8-2.0); ALKALINE PHOSPHATASE 76 IU/L (40-150); ANION GAP 14.5 mmol/L (8-16); BILIRUBIN,TOTAL 0.3 mg/dL (0.2-1.2); BLOOD UREA NITROGEN 12 mg/dL (7-26); BUN/CREATININE RATIO 16 (6-25); CALCIUM 9.9 mg/dL (8.4-10.2); CARBON DIOXIDE 26 mmol/L (22-29); CHLORIDE 104 mmol/L (98-107); CREATINE KINASE 37 IU/L (29-168); CREATININE, SERUM 0.77 mg/dL (0.57-1.11); EST GLOMERULAR FILTRATION RATE 83 ML/MIN (>=60); GLUCOSE 117 mg/dL (74-118); POTASSIUM 3.5 mmol/L (3.5-5.1); SODIUM 141 mmol/L (136-145); TOTAL PROTEIN 7.8 g/dL (6.5-8.1)
[2024-08-31 00:37] LABS: TROPONIN I < 0.001 ng/mL (0-0.300)
[2024-08-31 01:22] VITALS: BP 147/84; PULSE 69; RESP 14; TEMP 98.2; O2SAT 98
== END 2024-08-31 01:35 | disposition home or self-care (01) ==
LOC: ER 23:53
DX: R42 Dizziness and giddiness (principal); R51.9 Headache, unspecified; R03.0 Elevated blood-pressure reading, without diagnosis of hypertension; E78.5 Hyperlipidemia, unspecified; F32.A Depression, unspecified; G25.81 Restless legs syndrome
CPT/HCPCS: 36415; 70450; 71045; 80053; 82550; 83690; 83880; 84484; 85025; 93005; 99284; J1200; J1885; J2765; J2919; J7030